=== PATIENT | female | born 2000 | race Caucasian/White ===

== ENCOUNTER 2022-09-12 15:48 | Emergency (ER) | payer BC ==
[2022-09-12] MEDS ORDERED: Albuterol Sulfate 2.5 mg/3 ml Neb ONE ×3 (16:01→16:57)
[2022-09-12] MEDS ORDERED: EPINEPHrine 1 MG/ML AMP ONE (16:58)
[2022-09-12] MEDS ORDERED: Acetaminophen 325 MG TAB PO PRN (17:16)
[2022-09-12] MEDS ORDERED: Senokot S 8.6-50 MG TAB PO PRN (17:16)
[2022-09-12] MEDS ORDERED: methylPREDNISolone Sod Succ 40 MG VIAL IVP SCH (18:00)
[2022-09-12] MEDS ORDERED: Famotidine 20 MG TAB PO SCH (21:00)
[2022-09-12] MEDS ORDERED: guaiFENesin/DM ER PO SCH (21:00)
== END 2022-09-12 18:40 | disposition home or self-care (01) ==
LOC: CSHERS 15:48
DX: J45.901 Unspecified asthma with (acute) exacerbation (principal)
CPT/HCPCS: 71045; 93005; 94644; 94760; 96372; J0171; J7611